=== PATIENT | male | born 2000 | race African-American/Black ===

== ENCOUNTER 2021-12-20 21:02 | Emergency (ER) | payer MEDICAID ==
[2021-12-20 21:06] VITALS: BP 134/85; TEMP 98.2
[2021-12-20] MEDS ORDERED: FLEXERIL 1010 MG/TAB PO (21:35)
[2021-12-20 21:45] VITALS: PULSE 86
== END 2021-12-20 21:45 | disposition home or self-care (01) ==
LOC: COL.ER 21:02
DX: M54.50 Low back pain, unspecified (principal)